=== PATIENT | male | born 1975 | race Caucasian/White ===

== ENCOUNTER 2016-12-22 00:36 | Emergency (ER) | payer SELFPAY ==
[2016-12-22 00:37] VITALS: BP 131/69; PULSE 99; RESP 16; TEMP 99.1; O2SAT 97
[2016-12-22] MEDS ORDERED: LISI10TA3 PO (01:19)
--- NOTE | 2016-12-22 01:28 | PD ---
HPI Chief Complaint: Pain: Acute or Chronic Time Seen by Provider: 01:25 Travel History International Travel<30 days: No Contact w/Intl Traveler<30days: No Traveled to known affect area: No History of Present Illness HPI Patient comes in for evaluation of right rib pain that he awoke with 3 days ago. Patient states on Tuesday he was drinking and unloaded a cart which he did by himself. Patient denies any known direct trauma but has an abrasion the midaxillary region of the rib cage is uncertain how he obtained. Patient states he did not feel any pain at the time however when he awoke the next morning he was having pain in his right ribs is worse with certain movement and deep inspiration. Patient states he's been taking [id number] medication with minimal to no relief of symptoms. Patient states he last took Advil 2 hours ago and still having severe pain. Patient is uncertain of his last tetanus shot. PFSH Past Medical History Cardiovascular Problems: Yes (HTN) Social History Alcohol Use: Yes Tobacco Use: Yes Substance Use: Yes (marijuana) Allergies-Medications (Allergen,Severity, Reaction): Coded Allergies: No Known Allergies (Unverified , 12/22/16) Reported Meds & Prescriptions Reported Meds & Active Scripts Active [place] (Hydrocodone-Acetaminophen) 5-325 mg Tab 1 Tab PO Q8HR PRN Flexeril (Cyclobenzaprine HCl) 10 Mg Tab 10 Mg PO Q8HR PRN Diclofenac Sodium DR (Diclofenac Sodium) 75 Mg Tabdr 75 Mg PO Q12HR PRN Reported Lisinopril 10 Mg Tab 10 Mg PO DAILY Review of Systems Except as stated in HPI: all other systems reviewed are Neg Physical Exam Narrative GENERAL: Well-developed, well nourished, in no acute distress, and non-ill appearing. SKIN: Warm and dry. Superficial abrasion noted right mid axilla line of the ribs without signs of infection. HEAD: Atraumatic. Normocephalic. EYES: Pupils equal and round. EOMI. No scleral icterus. No injection or drainage. ENT: No nasal bleeding or discharge. Mucous membranes pink and moist. NECK: Trachea midline. Supple. No nuclear rigidity. CARDIOVASCULAR: Regular rate and rhythm. No murmur appreciated. RESPIRATORY: No accessory muscle use. No respiratory distress. Wheezing noted throughout. Breath sounds equal bilaterally. Tenderness to right midaxillary rib cage. There is no crepitus, step-off, or ecchymosis noted. MUSCULOSKELETAL: No obvious deformities. No clubbing. No cyanosis. No edema. Full range of motion. NEUROLOGICAL: Awake and alert. No obvious cranial nerve deficits. Motor grossly within normal limits. Normal speech. PSYCHIATRIC: Appropriate mood and affect; insight and judgment normal. Data Data Last Documented VS Vital Signs Date Time Temp Pulse Resp B/P Pulse Ox O2 Delivery O2 Flow Rate FiO2 12/22/16 00:37 99.1 99 16 131/69 97 Orders Tetanus/Diphtheria Tox Adult (Tetanus/Di (12/22/16 01:30) Ribs, Uni (W/Exp Cxr-Min 3vw) (12/22/16 ) Resp Incentive Spirometry (12/22/16 ) Cyclobenzaprine (Flexeril) (12/22/16 01:30) Acetamin-Hydrocod 325-5 Mg ([place] 5-325 (12/22/16 01:30) MDM Medical Decision Making Medical Screen Exam Complete: Yes Emergency Medical Condition: Yes Differential Diagnosis Fracture, contusion, pneumothorax, pneumonia, other Narrative Course The patient suffered rib fracture with chest wall contusion. There is no clinical evidence to suggest intrathoracic injury nor cardiac injury at this time. There was no clinical evidence to suggest flail chest. The patient moves air well without difficulty and is clear to auscultation. Heart sounds are audible without rubs, murmurs or gallops. There is no palpable crepitus. Pulses are symmetrical and strong. There is no significant tenderness over the lower chest to suggest injury to the liver nor spleen. Chest Xray was normal without evidence of pneumothorax or hemothorax. The mediastinum appeared within normal limits. Diagnosis was discussed with the patient. The patient was discharged on pain medication and with a Inspiratory Spirometer after training. The patient is to return if develops any worsening pain, difficulty breathing, or if coughs up blood or develops fever. Patient agrees with plan and was recommended to follow up with their regular physician. Patient in no obvious distress upon re-evaluation. All pertinent Radiology result(s) discussed with patient. Patient was asked if they wanted to speak to my attending, which the patient did not wish to do at this time. Any questions/ concerns in reference to patient diagnosis/condition discussed and clarified prior to patient's discharge. Reinforced sheer importance of close follow up with patient's primary physician or primary care clinic. Instructed patient to return to ED immediately, if symptoms return/worsen. Pt showed understanding of above instructions. Further instructions and recommendations were detailed in discharge paperwork. Pt ambulated without difficulty out of ED at discharge. Diagnosis Primary Impression: Right rib fracture Qualified Code: S22.31XA - Closed fracture of one rib of right side, initial encounter Additional Impression: Abrasion Patient Instructions: General Instructions, Rib Fracture (ED) Additional Instructions: Follow-up with your primary care physician in 3-5 days for reevaluation. Take all medication as prescribed. Use incentive spirometer 10 times per hour and was instructed to prevent pneumonia. Return to the emergency department if symptoms get worse. Med/Other Pt SpecificInfo: Prescription(s) given Scripts Hydrocodone-Acetaminophen ([place])5-325 mg Tab1 Tab PO Q8HR PRN (PAIN GREATER THAN 7) #7 TAB Ref 0 Prov:Cass Crespo DO 12/22/16 Cyclobenzaprine (Flexeril)10 Mg Tab10 Mg PO Q8HR PRN (MUSCLE PAIN) #15 TAB Ref 0 Prov:Cass Crespo DO 12/22/[address] 75 Mg Tabdr75 Mg PO Q12HR PRN (PAIN SCALE 1 TO 10) #14 TAB Ref 0 Prov:Cass Crespo DO 12/22/16 Disposition: 01 DISCHARGE HOME Condition: Stable Keith Bowen Dec 22, 2016 01:28
[2016-12-22] MEDS ORDERED: TETANUS/DIPHTHERIA TOXOID ADULT 0.5 ML VIAL IM ONE (01:30)
[2016-12-22] MEDS ORDERED: ACETAMINOPHEN/HYDROcodone 325 MG/5 MG TAB PO ONE (01:30)
[2016-12-22] MEDS ORDERED: CYCLOBENZAPRINE HCL 10 MG TAB PO ONE (01:30)
--- NOTE | 2016-12-22 01:53 | RADRPT ---
EXAM DATE/TIME: 12/22/2016 01:48 [facility] COMPARISON: No previous studies available for comparison. INDICATIONS : Right Rib pain. MEDICAL HISTORY : None. SURGICAL HISTORY : None. ENCOUNTER: Initial ACUITY: 3 days PAIN SCORE: 10/10 LOCATION: Right ribs FINDINGS: 3 views right-sided ribs. Right lateral ninth rib fracture is identified. 3 mm displacement. No gross evidence of pneumothorax or pleural effusion. CONCLUSION: Right lateral ninth rib fracture. Bert Castro MD on December 22, 2016 at 1:49 Board Certified Radiologist. This report was verified electronically.
[2016-12-22] MEDS ORDERED: CYCL1TAB29 PO (01:59)
[2016-12-22] MEDS ORDERED: NORC5TAB PO (01:59)
[2016-12-22] MEDS ORDERED: DICL75TA PO (01:59)
== END 2016-12-22 02:24 | disposition home or self-care (01) ==
LOC: NEPB 00:36
DX: S22.31XA Fracture of one rib, right side, initial encounter for closed fracture (principal); I10 Essential (primary) hypertension; F17.210 Nicotine dependence, cigarettes, uncomplicated; F12.90 Cannabis use, unspecified, uncomplicated; X58.XXXA Exposure to other specified factors, initial encounter; Z23 Encounter for immunization
CPT/HCPCS: 71101; 90471; 90714; 94150